=== PATIENT | female | born 1930 | race Caucasian/White ===

== ENCOUNTER 2016-11-18 09:00 | Emergency (ER) | payer MEDICARE, OTHER, MEDICAID ==
[~2016-11-18 09:00] MED LIST: CYMBALTA60 MG PO; DOCUSATE SODIU100 MG PO; DUONEB DPS3 ML IH; FUROSEMIDE80 MG PO; GABAPENTIN300 MG PO; GABAPENTIN600 MG PO; LACTULOSE20 GM/30 M PO; LEVAQUIN DPS500 MG PO; METOPROLOL TART25 MG PO; NYSTATIN CREAM15 GM TP; OMEPRAZOLE20 MG PO; OXY IR DPS5 MG PO; SENOKOT DPS8.6 MG PO; TIZANIDINE HCL2 MG PO; TYLENOL DPS325 MG PO; ULTRAM DPS50 MG PO
--- NOTE | 2016-11-19 16:41 | ER ---
ADMIT: 11/18/2016 RM/LOC: ER [facility] MR#: [id number] [address] [id number] [place] [address] Emergency Room Report SEX: F AGE: 86 : 1930 DATE: 11/18/2016 ADDENDUM: CHIEF COMPLAINT: Hard to arouse this morning. HISTORY OF PRESENT ILLNESS: This is an 86-year-old, chronic dementia woman whom they were trying to wake this morning. They had a hard time waking her, so brought her into the emergency room. Upon arrival, she is awake now and appropriate. She denies any pain. Denies any shortness of breath. Denies any dysuria. Vitals are normal with a blood pressure 140/56, pulse is 72, respirations 19, temperature 96.9, and saturation of oxygen 96% on room air. We did do an EKG that showed ventricular trigeminy. Dr. Albert over-read this. I spoke with Dr. Horowitz concerning this patient. Since she is afebrile, there is no somnolence or fatigue at this time, again she is awake. Dr. Horowitz felt appropriate to change her tizanidine from 2 mg t.i.d. to 2 mg b.i.d. as needed. Also to have her follow up with her in 1-2 weeks. CLINICAL IMPRESSION: Somnolent secondary to medications. MIRIAM Stanley / Kevin Albert MD / modl JOB #: [id number] CC: Kevin Albert MD, Attending Physician Jannette Horowitz MD, Family Physician
== END 2016-11-18 10:45 | disposition home or self-care (01) ==
LOC: ER 09:00
DX: R40.0 Somnolence (principal); E11.9 Type 2 diabetes mellitus without complications; I10 Essential (primary) hypertension; Z79.899 Other long term (current) drug therapy; Z88.2 Allergy status to sulfonamides; Z88.6 Allergy status to analgesic agent; Z88.8 Allergy status to other drugs, medicaments and biological substances

== ENCOUNTER 2016-12-23 05:46 | Emergency (ER) | payer MEDICARE, OTHER, MEDICAID ==
--- NOTE | 2016-12-24 00:04 | ER ---
ADMIT: 12/23/2016 RM/LOC: ER [facility] MR#: [id number] [facility] [address] [place] [id number] [place] [address] Emergency Room Report SEX: F AGE: 86 : 1930 DATE: 12/23/2016 TIME: 0546 hours. Please refer to my T-sheet for complete H and P. HISTORY OF PRESENT ILLNESS: Briefly, the patient is an 86-year-old who lives over at [facility]. Apparently, she has dementia. She is a fall risk, but she gets up and wanders, she fell. Said she was awake when they got to her, she has only complained of head and neck pain. She had a laceration on her head and a skin tear on her right hand, seemed to have no other injuries. She is very hard to get a history from. PHYSICAL EXAMINATION: VITAL SIGNS: Blood pressure 125/53, pulse 69, respirations 12, temp 96.8, saturating 92% on room air. GENERAL: She is no acute distress. HEENT: Head reveals a 2 cm forehead laceration above her left eyebrow. Otherwise, atraumatic and normocephalic. Pupils are equal, round, and reactive to light. Extraocular muscles intact. NECK: Soft, supple. She has diffuse tenderness. She was placed in a C- collar. LUNGS: Clear. HEART: Regular. ABDOMEN: Soft. SKIN: No rash. NEURO: She is confused about specifics consistent with her dementia, but nonfocal. EMERGENCY DEPARTMENT COURSE: CT of her head and C-spine were read by negative. We removed her C-collar at 6:40. I cleansed her laceration to her forehead, I sutured after local anesthetic with four 5-0 Ethilon. The patient tolerated well. I talked to halfway. She was transferred back. ASSESSMENT: 1. A 2 cm forehead laceration. 2. Fall. 3. Cervical strain. 4. Dementia. PLAN: Keep clean. Return if fever, pus, or drainage. Suture removal in 6 to 7 days. Follow up with Dr. Horowitz. Fall precautions. Truong Alfonso MD/ iwlly JOB #: [id number] CC: Truong Alfonso MD, Attending Physician ADMIT: 12/23/2016 RM/LOC: ER [facility] MR#: [id number] [address] [place] [id number] [place] [address] Emergency Room Report SEX: F AGE: 86 : 1930 Jannette Horowitz MD, Family Physician
== END 2016-12-23 07:05 ==
LOC: ER 05:46
PROC: 0HQ1XZZ Repair Face Skin, External Approach (ICD-10-PCS; principal; 2016-12-23)
DX: S01.81XA Laceration without foreign body of other part of head, initial encounter (principal); S16.1XXA Strain of muscle, fascia and tendon at neck level, initial encounter; F03.90 Unspecified dementia, unspecified severity, without behavioral disturbance, psychotic disturbance, mood disturbance, and anxiety; I10 Essential (primary) hypertension; W19.XXXA Unspecified fall, initial encounter; Y92.129 Unspecified place in nursing home as the place of occurrence of the external cause

== ENCOUNTER 2017-05-19 16:40 | Emergency (ER) | payer MEDICARE ==
--- NOTE | 2017-05-20 09:16 | ER ---
ADMIT: 05/19/2017 RM/LOC: ER [facility] MR#: [id number] [address] [id number] [place] [address] Emergency Room Report SEX: F AGE: 87 : 1930 DATE: 05/19/2017 SUBJECTIVE: This is a pleasant 87-year-old female from [place], who fell at the senior care just prior to arriving to the hospital. She sustained a laceration to her right hand and laceration to the back of her right middle finger. The skin is super thin in that area, and she just has a skin flap. She complains of shoulder pain. Everything is just related to the fall on the right side, shoulder and wrist. PAST MEDICAL HISTORY: She has a history of: 1. Depression. 2. Hypertension. 3. Chronic back pain. 4. Dementia. MEDICATIONS: She takes: 1. Aspirin. 2. Sulfa. 3. Codeine. 4. Demerol. 5. Morphine. 6. Zoloft. SOCIAL HISTORY: Denies smoking, drugs, or alcohol. PHYSICAL EXAMINATION: VITAL SIGNS: Blood pressure 144/56, heart rate 71, respirations 16, temperature is 97.4, and O2 sats 96%. GENERAL: Mildly anxious actually tearful after cleaning up the area of the laceration. We repaired the forehead with a couple of glues of Dermabond. She does have a hematoma that is about 3 x 5 in the right forehead parietal area. HEENT: Ears look fine. No blood in the posterior tympanic membrane. Eyes are PERRLA. NECK: Supple. RESPIRATIONS: Chest is nontender. ABDOMEN: Nontender. NEURO: She is somewhat confused, but very pleasant and oriented x2 to person and to situation. EXTREMITIES: Tenderness in the left knee. No abrasion. No signs of contusion. No swelling. Laceration in the right hand was repaired with Prolene 4-0 four sutures. This ADMIT: 05/19/2017 RM/LOC: [facility] MR#: [id number] [address] [address] [place] [address] Emergency Room Report SEX: F AGE: 87 : 1930 is about 2.5 to 3 cm right at the base of the index finger in a horseshoe shape. She also has another one in the back of the right middle finger more of a skin tear which was about 3 to 3-1/2 cm in length. This was repaired with Dermabond. X-rays done of the right wrist and shoulder are both negative, just positive for DJD. CT of the head also negative. No fractures. Son at bedside. I did discuss all findings with her son. CLINICAL IMPRESSION: Laceration to right hand secondary to a fall. She also has right shoulder and wrist contusion, minor head injury. No loss of consciousness. Instructions for senior care provided. MIRIAM Resendez / Kevin Albert MD / willy JOB #: [id number] CC: Kevin Albert MD, Attending Physician Jannette Horowitz MD, Family Physician
== END 2017-05-19 19:30 | disposition home or self-care (01) ==
LOC: ER 16:40
PROC: 0HQFXZZ Repair Right Hand Skin, External Approach (ICD-10-PCS; principal; 2017-05-19)
DX: S61.411A Laceration without foreign body of right hand, initial encounter (principal); S40.011A Contusion of right shoulder, initial encounter; S00.83XA Contusion of other part of head, initial encounter; S60.211A Contusion of right wrist, initial encounter; I10 Essential (primary) hypertension; F32.9 Major depressive disorder, single episode, unspecified; Z88.2 Allergy status to sulfonamides; Z88.5 Allergy status to narcotic agent; Z88.6 Allergy status to analgesic agent; Z88.8 Allergy status to other drugs, medicaments and biological substances; Z79.899 Other long term (current) drug therapy; Z23 Encounter for immunization; W18.30XA Fall on same level, unspecified, initial encounter; Y92.009 Unspecified place in unspecified non-institutional (private) residence as the place of occurrence of the external cause